=== PATIENT | male | born 1960 | race Caucasian/White ===

== ENCOUNTER 2017-01-15 19:46 | Inpatient (IN) | payer MEDICARE, MEDICAID ==
[~2017-01-15] VITALS: Ht 175.3 cm; Wt 56.2 kg
--- NOTE | 2017-01-15 20:13 | NUR ---
DR. LOCK AT BEDSIDE FOR MSE.
[2017-01-15 20:41] LABS: BASOPHILS # (AUTO) 0.4 K/uL (0.0-8.0); BASOPHILS % (AUTO) 3.2 % (0.0-2.0); EOSINOPHILS # (AUTO) 0.5 K/uL (0.0-0.7); HEMATOCRIT 36.6 % (40-50); HEMOGLOBIN 12.4 G/DL (14.0-18.0); LYMPHOCYTES # (AUTO) 2.7 K/UL (0.8-4.8); LYMPHOCYTES % (AUTO) 21.6 % (20.5-51.5); MEAN CORPUSCULAR HEMOGLOBIN 30.4 UUG (27.0-31.0); MEAN CORPUSCULAR HGB CONC 34 g/dL (32.0-37.0); MEAN CORPUSCULAR VOLUME 89.5 FL (82.0-92.0); MONOCYTES % (AUTO) 7.9 % (0.0-11.0); NEUTROPHILS # (AUTO) 7.7 K/UL (1.8-8.9); NEUTROPHILS % (AUTO) 63.3 % (38.5-71.5); PLATELET COUNT (AUTO) 431 K/UL (150-450); RED BLOOD CELL COUNT(AUTO) 4.09 MIL/UL (4.7-6.1); WHITE BLOOD COUNT (AUTO) 12.3 K/UL (4.0-11.2)
[2017-01-15 20:51] LABS: CARBON DIOXIDE 29 mmol/L (21-32); CHLORIDE 94 mmol/L (98-107); CREATININE 0.4 mg/dL (0.6-1.3); GLUCOSE 101 mg/dL (74-106); POTASSIUM 3.7 mmol/L (3.5-5.1); UREA NITROGEN, BLOOD 8 mg/dL (7-18)
[2017-01-15 20:56] LABS: *BILIRUBIN,URIN NEGATIVE (NEGATIVE); *BLOOD, URINE Trace-intact (NEGATIVE); *CLARITY,URINE CLEAR (CLEAR); *COLOR,URINE YELLOW (YELLOW); *KETONES,URINE NEGATIVE (NEGATIVE); *PROTEIN,URINE NEGATIVE (NEGATIVE); *UROBILINOGEN,URINE 0.2 E.U./dl (NORMAL); LEUKOCYTE ESTERASE ,URINE 3+ (NEGATIVE); NITRITE, URINE POSITIVE (NEGATIVE); UGLUCOSE NEGATIVE (NEGATIVE)
[2017-01-15 20:56] LABS: ETHANOL < 3 MG/DL (0-0)
[2017-01-15 21:01] LABS: BACTERIA,URINE MODERATE /HPF (NONE SEEN); SQUAMOUS EPITHELIAL CELL,UR FEW /HPF (NONE SEEN); WBC,URINE 20-50 /HPF (0-3)
[2017-01-15 21:02] LABS: ACETAMINOPHEN < 2.0 ug/mL (10-30); ALANINE AMINOTRANSFERASE 29 U/L (16-63); ALKALINE PHOSPHATASE 100 U/L (50-136); ASPARTATE AMINOTRANSFERASE 24 U/L (15-37); BILIRUBIN,DIRECT 0.1 mg/dL (0.0-0.2); BILIRUBIN,TOTAL 0.3 mg/dL (0.2-1.0); TOTAL PROTEIN, SERUM 7.4 g/dL (6.4-8.2)
[2017-01-15 21:06] LABS: THYROID STIMULATING HORMONE 1.167 mIU/mL (0.358-3.740)
[2017-01-15 21:07] LABS: *AMPHETAMINE, URINE NEGATIVE (NEGATIVE); *BARBITURATE, URINE NEGATIVE (NEGATIVE); *CANNABINOID, URINE NEGATIVE (NEGATIVE); *COCCAINE, URINE NEGATIVE (NEGATIVE); *OPIATE, URINE NEGATIVE (NEGATIVE); *PHENCYCLIDINE SCREEN,URINE NEGATIVE (NEGATIVE)
[2017-01-15] MEDS ORDERED: NITROFURANTOIN/NITROFURAN MAC 100 MG CAPSULE PO ONE (21:30)
--- NOTE | 2017-01-15 21:33 | NUR ---
Kuldip Castillo at bedside for interview.
[2017-01-15] MEDS ORDERED: NITROFURANTOIN/NITROFURAN MAC 100 MG CAPSULE ONE (21:49)
[2017-01-15] MEDS ORDERED: FLUT16SP2 NAS (22:05)
[2017-01-15] MEDS ORDERED: MAGN400O6 PO (22:05)
[2017-01-15] MEDS ORDERED: ASPI81TA31 PO (22:05)
[2017-01-15] MEDS ORDERED: CETI10CA PO (22:05)
[2017-01-15] MEDS ORDERED: ACET-2154 PO (22:05)
[2017-01-15] MEDS ORDERED: LACO200T2 PO (22:05)
[2017-01-15] MEDS ORDERED: ATOR80TA PO (22:05)
[2017-01-15] MEDS ORDERED: LEVE100S PO (22:05)
[2017-01-15] MEDS ORDERED: MAGN400T26 PO (22:05)
[2017-01-15] MEDS ORDERED: FOLI1TAB16 PO (22:05)
[2017-01-15] MEDS ORDERED: BISA10SU12 PR (22:05)
[2017-01-15] MEDS ORDERED: THIA100T13 PO (22:05)
--- NOTE | 2017-01-15 22:20 | NUR ---
Pt. admitted to [facility] , under care of Dr. AYALA Belongs List completed PLACED ON 5150 FOR DTS.
[2017-01-15] MEDS ORDERED: MAGNESIUM HYDROXIDE 30 ML LIQUID UDC PO PRN (23:15)
[2017-01-15] MEDS ORDERED: MAG HYDROX/AL HYDROX/SIMETH 30 ML LIQUID UDC PO PRN (23:15)
[2017-01-15] MEDS ORDERED: ZOLPIDEM 5 MG TABLET PO PRN (23:15)
[2017-01-15] MEDS ORDERED: ACETAMINOPHEN 325 MG TABLET PO PRN (23:15)
[2017-01-16] MEDS ORDERED: ZOLPIDEM 5 MG TABLET ONE (00:02)
[2017-01-16] MEDS ORDERED: LORAZEPAM 1 MG TABLET ONE (00:02)
[2017-01-16 00:15] VITALS: BP 128/90
[2017-01-16] MEDS: LORAZEPAM 1 MG TABLET PO PRN (00:34)
--- NOTE | 2017-01-16 01:00 | NUR ---
GPS: Admitted to unit earlier a 56 yr.old male from [facility] under the care and supervision of /. Pt.is on a 72 hour hold for DTS. Pt. stated that he wished to and that he's been depressed since of his twin brother,per hold. Pt.also has been refusing his psych.meds. and has been non compliant with his care. Skin assessment done/personal belongings completed. Contraband items removed from pt. Pt.is alert to self and place only at this time. Pt. during admission process was demanding for a cigarette repeatedly and when was told he may not,he got agitated,hostile and refused to sign papers and answer questions asked by staff. Assisted to his room and was given a sleeping pill per pts request. Safety emphasized. No further escalation of behavior noted.
[2017-01-16 07:30] VITALS: BP 151/70
[2017-01-16] MEDS: NICOTINE 21 MG/24HR PATCH TD SCH (09:15)
[2017-01-16] MEDS: CEPHALEXIN MONOHYDRATE 500 MG CAPSULE PO SCH ×3 (12:46→21:15)
[2017-01-16] MEDS: LEVETIRACETAM 500 MG/5 ML LIQUID UDC PO SCH ×2 (13:51→20:16)
[2017-01-16] MEDS: ASPIRIN 81 MG TAB.CHEW PO SCH (13:51)
[2017-01-16] MEDS: FOLIC ACID 1 MG TABLET PO SCH (13:51)
[2017-01-16] MEDS: LACOSAMIDE 50 MG TABLET PO SCH ×2 (13:51→20:14)
[2017-01-16] MEDS ORDERED: MULTIVITAMINS,THERAPEUTIC TABLET PO SCH (14:00)
--- NOTE | 2017-01-16 14:54 | NUR ---
KEFLEX 500 MG DOSE AT 1400 NOT GIVEN TOO CLOSE TO THE IST DOSE.
[2017-01-16 15:24] VITALS: BP 113/66
[2017-01-16 20:10] VITALS: BP 115/74
[2017-01-16] MEDS: QUETIAPINE FUMARATE 25 MG TABLET PO SCH (20:15)
[2017-01-16] MEDS: CETIRIZINE HCL 10 MG TABLET PO SCH (20:15)
[2017-01-16] MEDS ORDERED: Medication Not On Formulary EA (Cetirizine Hcl (Zyrtec) 10 MG) PO SCH (21:00)
[2017-01-17] MEDS: CEPHALEXIN MONOHYDRATE 500 MG CAPSULE PO SCH ×3 (05:50→21:42)
--- NOTE | 2017-01-17 06:44 | NUR ---
Pt SLEPT THROUGHOUT THE SHIFT. SHOWERED THIS MORNING. SLEPT 9.15 HOURS.
[2017-01-17 07:25] LABS: BASOPHILS # (AUTO) 0.1 K/uL (0.0-8.0); BASOPHILS % (AUTO) 1.6 % (0.0-2.0); EOSINOPHILS # (AUTO) 0.5 K/uL (0.0-0.7); EOSINOPHILS % (AUTO) 5.7 % (0.0-7.0); HEMATOCRIT 39.7 % (40-50); HEMOGLOBIN 12.9 G/DL (14.0-18.0); LYMPHOCYTES # (AUTO) 2.3 K/UL (0.8-4.8); LYMPHOCYTES % (AUTO) 26.3 % (20.5-51.5); MEAN CORPUSCULAR HEMOGLOBIN 29.1 UUG (27.0-31.0); MEAN CORPUSCULAR HGB CONC 33 g/dL (32.0-37.0); MEAN CORPUSCULAR VOLUME 89.5 FL (82.0-92.0); MONOCYTES # (AUTO) 0.9 K/UL (0.1-1.30); NEUTROPHILS % (AUTO) 56.4 % (38.5-71.5); PLATELET COUNT (AUTO) 362 K/UL (150-450); RED BLOOD CELL COUNT(AUTO) 4.44 MIL/UL (4.7-6.1); WHITE BLOOD COUNT (AUTO) 8.8 K/UL (4.0-11.2)
[2017-01-17 07:30] VITALS: BP 109/80
[2017-01-17 07:34] LABS: ALANINE AMINOTRANSFERASE 29 U/L (16-63); ALKALINE PHOSPHATASE 95 U/L (50-136); ASPARTATE AMINOTRANSFERASE 21 U/L (15-37); BILIRUBIN,TOTAL 0.3 mg/dL (0.2-1.0); CARBON DIOXIDE 28 mmol/L (21-32); CHLORIDE 97 mmol/L (98-107); CREATININE 0.5 mg/dL (0.6-1.3); GLUCOSE 87 mg/dL (74-106); MAGNESIUM 1.3 mg/dL (1.8-2.4); PHOSPHOROUS 4.1 mg/dL (2.5-4.9); POTASSIUM 3.8 mmol/L (3.5-5.1); TOTAL PROTEIN, SERUM 7.2 g/dL (6.4-8.2); UREA NITROGEN, BLOOD 5 mg/dL (7-18)
[2017-01-17] MEDS: NICOTINE 21 MG/24HR PATCH TD SCH (09:07)
[2017-01-17] MEDS: THIAMINE HCL 100 MG TABLET PO SCH (09:24)
[2017-01-17] MEDS: FOLIC ACID 1 MG TABLET PO SCH (09:24)
[2017-01-17] MEDS: ESCITALOPRAM OXALATE 10 MG TABLET PO SCH (09:24)
[2017-01-17] MEDS: LEVETIRACETAM 500 MG/5 ML LIQUID UDC PO SCH ×2 (09:31→20:00)
[2017-01-17] MEDS: MULTIVITAMINS,THERAPEUTIC TABLET PO SCH (09:32)
[2017-01-17] MEDS: LACOSAMIDE 50 MG TABLET PO SCH ×2 (09:32→20:01)
[2017-01-17] MEDS ORDERED: MAGNESIUM OXIDE 400 MG TABLET PO ONE (09:45)
[2017-01-17] MEDS: FLUTICASONE PROP NASAL SPRAY 16 GM BOTTLE NS SCH (09:57)
[2017-01-17] MEDS: ASPIRIN 81 MG TAB.CHEW PO SCH (09:57)
[2017-01-17 15:23] VITALS: BP 102/71
[2017-01-17] MEDS: CETIRIZINE HCL 10 MG TABLET PO SCH (20:01)
[2017-01-17] MEDS: MAGNESIUM OXIDE 400 MG TABLET PO SCH (20:01)
[2017-01-17] MEDS: QUETIAPINE FUMARATE 25 MG TABLET PO SCH (20:02)
[2017-01-17 20:24] VITALS: BP 116/65
[2017-01-18] MEDS: CEPHALEXIN MONOHYDRATE 500 MG CAPSULE PO SCH ×3 (06:05→21:22)
[2017-01-18 07:30] VITALS: BP 99/65
[2017-01-18] MEDS: NICOTINE 21 MG/24HR PATCH TD SCH (08:22)
[2017-01-18] MEDS: MULTIVITAMINS,THERAPEUTIC TABLET PO SCH (08:23)
[2017-01-18] MEDS: ESCITALOPRAM OXALATE 10 MG TABLET PO SCH (08:23)
[2017-01-18] MEDS: ASPIRIN 81 MG TAB.CHEW PO SCH (08:23)
[2017-01-18] MEDS: LACOSAMIDE 50 MG TABLET PO SCH ×2 (08:23→21:23)
[2017-01-18] MEDS: THIAMINE HCL 100 MG TABLET PO SCH (08:23)
[2017-01-18] MEDS: FLUTICASONE PROP NASAL SPRAY 16 GM BOTTLE NS SCH (08:24)
[2017-01-18] MEDS: LORAZEPAM 1 MG TABLET PO PRN (08:31)
[2017-01-18] MEDS: LEVETIRACETAM 500 MG/5 ML LIQUID UDC PO SCH ×2 (09:15→21:24)
[2017-01-18] MEDS: FOLIC ACID 1 MG TABLET PO SCH (12:42)
[2017-01-18] MEDS ORDERED: MAGNESIUM OXIDE 400 MG TABLET PO ONE (14:45)
--- NOTE | 2017-01-18 17:09 | NUR ---
Initial DC Plan: Pt arrived from [facility] [[address], [place] [address] ]. SW will follow up with facility to confirm if patiet can return upon discharge. SW will follow up with MD, patient, and pt's LATANYA Garcia [[phone]] to discuss most appropriate discharge plans. SW will form a safe and proper discharge.
--- NOTE | 2017-01-18 18:14 | NUR ---
Pt was compliant on taking his pills. Pt observed that pt has difficulty and delays finding words when having conversation with pt.
[2017-01-18 20:36] VITALS: BP 132/79
[2017-01-18] MEDS: CETIRIZINE HCL 10 MG TABLET PO SCH (21:22)
[2017-01-18] MEDS: MAGNESIUM OXIDE 400 MG TABLET PO SCH (21:22)
[2017-01-18] MEDS: QUETIAPINE FUMARATE 25 MG TABLET PO SCH (21:23)
--- NOTE | 2017-01-18 22:00 | NUR ---
received to care, lying in bed, pleasant upon approach, but easilly agitated. compliant with medications and staff direction. as of 2199, he appears to be asleep. no dsitress noted. will continue to monitor closely.
[2017-01-19] MEDS: CEPHALEXIN MONOHYDRATE 500 MG CAPSULE PO SCH ×3 (05:57→21:14)
--- NOTE | 2017-01-19 06:00 | NUR ---
slept 10.0 hours, total. assisted with AM care, and shower. currently lying in bed. no distress noted.
[2017-01-19 07:30] VITALS: BP 114/76
[2017-01-19] MEDS: LACOSAMIDE 50 MG TABLET PO SCH ×2 (08:53→20:43)
[2017-01-19] MEDS: THIAMINE HCL 100 MG TABLET PO SCH (08:53)
[2017-01-19] MEDS: NICOTINE 21 MG/24HR PATCH TD SCH (08:53)
[2017-01-19] MEDS: ESCITALOPRAM OXALATE 10 MG TABLET PO SCH (08:54)
[2017-01-19] MEDS: ASPIRIN 81 MG TAB.CHEW PO SCH (08:54)
[2017-01-19] MEDS: FLUTICASONE PROP NASAL SPRAY 16 GM BOTTLE NS SCH (08:54)
[2017-01-19] MEDS: MULTIVITAMINS,THERAPEUTIC TABLET PO SCH (08:54)
[2017-01-19] MEDS: LEVETIRACETAM 500 MG/5 ML LIQUID UDC PO SCH ×2 (08:57→20:45)
[2017-01-19] MEDS: FOLIC ACID 1 MG TABLET PO SCH (13:35)
[2017-01-19] MEDS: LORAZEPAM 1 MG TABLET PO PRN (15:25)
[2017-01-19 16:32] VITALS: BP 135/85
[2017-01-19] MEDS: QUETIAPINE FUMARATE 25 MG TABLET PO SCH (20:44)
[2017-01-19] MEDS: CETIRIZINE HCL 10 MG TABLET PO SCH (20:44)
[2017-01-19] MEDS: MAGNESIUM OXIDE 400 MG TABLET PO SCH (20:44)
[2017-01-19 20:49] VITALS: BP 103/63
--- NOTE | 2017-01-19 21:04 | NUR ---
Patient sleeping in bed, alert and oriented to self, blunted affect still with signs of depression with minimal engagement to conversation. Denies any suicidal ideation at this time. Maintained baed in locked position. On 14-day hold until 02/01 foe suicidal ideation. Maintained on safety suicide precaution.
[2017-01-20] MEDS: CEPHALEXIN MONOHYDRATE 500 MG CAPSULE PO SCH ×3 (05:29→21:14)
--- NOTE | 2017-01-20 06:36 | NUR ---
had a good sleep through the night 10.0 hrs. still with depressed and withdrawn behavior with no suicidal ideation. vital signs are stable. no respiratory distress noted. maintained on safety.
[2017-01-20 07:30] VITALS: BP 127/70
[2017-01-20] MEDS: ESCITALOPRAM OXALATE 10 MG TABLET PO SCH (09:03)
[2017-01-20] MEDS: LACOSAMIDE 50 MG TABLET PO SCH ×2 (09:03→20:28)
[2017-01-20] MEDS: NICOTINE 21 MG/24HR PATCH TD SCH (09:03)
[2017-01-20] MEDS: THIAMINE HCL 100 MG TABLET PO SCH (09:03)
[2017-01-20] MEDS: MULTIVITAMINS,THERAPEUTIC TABLET PO SCH (09:03)
[2017-01-20] MEDS: ASPIRIN 81 MG TAB.CHEW PO SCH (09:03)
[2017-01-20] MEDS: FOLIC ACID 1 MG TABLET PO SCH (09:04)
[2017-01-20] MEDS: FLUTICASONE PROP NASAL SPRAY 16 GM BOTTLE NS SCH (09:10)
[2017-01-20] MEDS: LEVETIRACETAM 500 MG/5 ML LIQUID UDC PO SCH ×2 (09:52→20:28)
[2017-01-20 15:36] VITALS: BP 106/69
[2017-01-20] MEDS: MAGNESIUM OXIDE 400 MG TABLET PO SCH (20:29)
[2017-01-20] MEDS: CETIRIZINE HCL 10 MG TABLET PO SCH (20:29)
[2017-01-20] MEDS: QUETIAPINE FUMARATE 25 MG TABLET PO SCH (20:29)
[2017-01-20 20:46] VITALS: BP 113/79
--- NOTE | 2017-01-20 22:00 | NUR ---
received to care, lying in bed, pleasant upon approach. compliant with medications and staff direction. as of 0, he appears to be asleep. no distress noted. will continue to monitor closely.
--- NOTE | 2017-01-21 06:00 | NUR ---
slept 7.5 hours, total. currently lying in bed. no distress noted. Addendum: 01/21/17 at 0644 by DENISSE HANCOCK LVN assisted with am care, and shower.
[2017-01-21] MEDS: CEPHALEXIN MONOHYDRATE 500 MG CAPSULE PO SCH (06:06)
[2017-01-21 07:30] VITALS: BP 103/82
[2017-01-21 07:40] LABS: BASOPHILS # (AUTO) 0.2 K/uL (0.0-8.0); BASOPHILS % (AUTO) 2.1 % (0.0-2.0); EOSINOPHILS # (AUTO) 0.5 K/uL (0.0-0.7); EOSINOPHILS % (AUTO) 6.5 % (0.0-7.0); HEMOGLOBIN 12.8 g/dL (12.5-16.3); LYMPHOCYTES # (AUTO) 1.9 K/uL (20.0-40.0); LYMPHOCYTES % (AUTO) 23.9 % (20.5-51.5); MEAN CORPUSCULAR HEMOGLOBIN 30.7 uug (23.8-33.4); MEAN CORPUSCULAR HGB CONC 35 g/dL (32.5-36.3); MEAN CORPUSCULAR VOLUME 88.5 fL (73.0-96.2); MONOCYTES # (AUTO) 0.9 K/uL (2.0-10.0); MONOCYTES % (AUTO) 11.5 % (0.0-11.0); NEUTROPHILS # (AUTO) 4.4 K/uL (1.8-8.9); PLATELET COUNT (AUTO) 290 K/uL (152-348); RED BLOOD CELL COUNT(AUTO) 4.18 MIL/uL (4.06-5.63); WHITE BLOOD COUNT (AUTO) 7.9 K/uL (3.6-10.2)
[2017-01-21 07:49] LABS: ALANINE AMINOTRANSFERASE 22 U/L (16-63); ALKALINE PHOSPHATASE 93 U/L (50-136); ASPARTATE AMINOTRANSFERASE 17 U/L (15-37); BILIRUBIN,TOTAL 0.3 mg/dL (0.2-1.0); CARBON DIOXIDE 28 mmol/L (21-32); CHLORIDE 98 mmol/L (98-107); CREATININE 0.4 mg/dL (0.6-1.3); GLUCOSE 94 mg/dL (74-106); POTASSIUM 3.5 mmol/L (3.5-5.1); TOTAL PROTEIN, SERUM 7.1 g/dL (6.4-8.2); UREA NITROGEN, BLOOD 9 mg/dL (7-18)
[2017-01-21 08:10] LABS: MAGNESIUM 1.2 mg/dL (1.8-2.4)
[2017-01-21] MEDS: LACOSAMIDE 50 MG TABLET PO SCH ×2 (08:44→20:44)
[2017-01-21] MEDS: MULTIVITAMINS,THERAPEUTIC TABLET PO SCH (08:44)
[2017-01-21] MEDS: ESCITALOPRAM OXALATE 10 MG TABLET PO SCH (08:44)
[2017-01-21] MEDS: NICOTINE 21 MG/24HR PATCH TD SCH (08:44)
[2017-01-21] MEDS: THIAMINE HCL 100 MG TABLET PO SCH (08:44)
[2017-01-21] MEDS: ASPIRIN 81 MG TAB.CHEW PO SCH (08:44)
--- NOTE | 2017-01-21 09:00 | NUR ---
0808 Charge nurse received low magnesium level 1.2 . 0820 CYLINDER BATCHER, Davis Lara notified about it with order to give magnesium 400 mg iv. Dread Vera, cooperative education director notified by charge nurse Michelle to administer IV magnesium- orderd carried out.
[2017-01-21] MEDS: FLUTICASONE PROP NASAL SPRAY 16 GM BOTTLE NS SCH (09:01)
[2017-01-21] MEDS: MAGNESIUM SULFATE/D5W 100 ML IV SCH ×4 (09:29→13:02)
[2017-01-21] MEDS: LEVETIRACETAM 500 MG/5 ML LIQUID UDC PO SCH ×2 (09:42→20:43)
[2017-01-21] MEDS: FOLIC ACID 1 MG TABLET PO SCH (13:06)
[2017-01-21 15:00] VITALS: BP_SYST 120; BP_SYST 131; BP_DIAS 66; BP_DIAS 78
[2017-01-21 20:34] VITALS: BP 118/76
[2017-01-21] MEDS: QUETIAPINE FUMARATE 25 MG TABLET PO SCH (20:43)
[2017-01-21] MEDS: CETIRIZINE HCL 10 MG TABLET PO SCH (20:44)
[2017-01-21] MEDS: MAGNESIUM OXIDE 400 MG TABLET PO SCH (20:44)
--- NOTE | 2017-01-21 21:46 | NUR ---
PATIENT RECEIVED IN BED AWAKE. PATIENT WITH FLAT AFFECT MINIMAL INTERACTION/ENGAGEMENT. PATIENT DENIES SI WILL CONTINUE TO MONITOR CHANGE OF BEHAVIOR AND REDIRECT NEEDED. PATIENT DENIES PAIN AT THIS TIME,WILL CONTINUE TO MONITOR. BED IN LOWEST POSITION, BED LOCKED, AND BED ALARM ON WHILE IN BED.
[2017-01-22 07:30] VITALS: BP 124/79
[2017-01-22] MEDS: ASPIRIN 81 MG TAB.CHEW PO SCH (09:00)
[2017-01-22] MEDS: FLUTICASONE PROP NASAL SPRAY 16 GM BOTTLE NS SCH (09:00)
[2017-01-22] MEDS: THIAMINE HCL 100 MG TABLET PO SCH (09:00)
[2017-01-22] MEDS: NICOTINE 21 MG/24HR PATCH TD SCH (09:00)
[2017-01-22] MEDS: MULTIVITAMINS,THERAPEUTIC TABLET PO SCH (09:00)
[2017-01-22] MEDS: ESCITALOPRAM OXALATE 10 MG TABLET PO SCH (09:00)
[2017-01-22] MEDS: FOLIC ACID 1 MG TABLET PO SCH (12:43)
[2017-01-22 15:27] VITALS: BP 117/81
[2017-01-22] MEDS: MAGNESIUM OXIDE 400 MG TABLET PO SCH (20:03)
[2017-01-22] MEDS: CETIRIZINE HCL 10 MG TABLET PO SCH (20:05)
[2017-01-22] MEDS: QUETIAPINE FUMARATE 25 MG TABLET PO SCH (20:05)
[2017-01-22 20:12] VITALS: BP 112/64
[2017-01-22] MEDS: LEVETIRACETAM 500 MG/5 ML LIQUID UDC PO SCH (21:35)
[2017-01-22] MEDS: LACOSAMIDE 50 MG TABLET PO SCH (21:36)
[2017-01-23 07:30] VITALS: BP 106/70
[2017-01-23] MEDS: THIAMINE HCL 100 MG TABLET PO SCH (08:33)
[2017-01-23] MEDS: MULTIVITAMINS,THERAPEUTIC TABLET PO SCH (08:33)
[2017-01-23] MEDS: NICOTINE 21 MG/24HR PATCH TD SCH (08:33)
[2017-01-23] MEDS: LACOSAMIDE 50 MG TABLET PO SCH ×2 (08:33→20:52)
[2017-01-23] MEDS: ASPIRIN 81 MG TAB.CHEW PO SCH (08:33)
[2017-01-23] MEDS: ESCITALOPRAM OXALATE 10 MG TABLET PO SCH (08:33)
[2017-01-23] MEDS: LEVETIRACETAM 500 MG/5 ML LIQUID UDC PO SCH ×2 (09:57→20:54)
[2017-01-23] MEDS: FLUTICASONE PROP NASAL SPRAY 16 GM BOTTLE NS SCH (09:57)
[2017-01-23] MEDS: FOLIC ACID 1 MG TABLET PO SCH (14:33)
[2017-01-23 15:00] VITALS: BP 113/76
[2017-01-23 20:30] VITALS: BP 110/62
[2017-01-23] MEDS: MAGNESIUM OXIDE 400 MG TABLET PO SCH (20:53)
[2017-01-23] MEDS: QUETIAPINE FUMARATE 25 MG TABLET PO SCH (20:53)
[2017-01-23] MEDS: CETIRIZINE HCL 10 MG TABLET PO SCH (20:53)
[2017-01-24 07:30] VITALS: BP 124/66
[2017-01-24] MEDS: NICOTINE 21 MG/24HR PATCH TD SCH (10:23)
[2017-01-24] MEDS: ESCITALOPRAM OXALATE 10 MG TABLET PO SCH (10:24)
[2017-01-24] MEDS: LEVETIRACETAM 500 MG/5 ML LIQUID UDC PO SCH ×2 (10:24→20:26)
[2017-01-24] MEDS: ASPIRIN 81 MG TAB.CHEW PO SCH (10:24)
[2017-01-24] MEDS: LACOSAMIDE 50 MG TABLET PO SCH ×2 (10:24→20:27)
[2017-01-24] MEDS: THIAMINE HCL 100 MG TABLET PO SCH (10:24)
[2017-01-24] MEDS: MULTIVITAMINS,THERAPEUTIC TABLET PO SCH (10:24)
[2017-01-24] MEDS: FLUTICASONE PROP NASAL SPRAY 16 GM BOTTLE NS SCH (10:54)
[2017-01-24] MEDS: FOLIC ACID 1 MG TABLET PO SCH (12:50)
[2017-01-24 17:00] VITALS: BP 113/69
--- NOTE | 2017-01-24 18:50 | NUR ---
Spoke with patients LATANYA Gómez. Dalia was following up regarding her request to the Doctor about a medication adjustment. Gave an update. Dalia also mentioned that patient prefers to go by his middle name "Anthony". Will continue to monitor
[2017-01-24] MEDS: QUETIAPINE FUMARATE 25 MG TABLET PO SCH (20:27)
[2017-01-24] MEDS: MAGNESIUM OXIDE 400 MG TABLET PO SCH (20:27)
[2017-01-24] MEDS: CETIRIZINE HCL 10 MG TABLET PO SCH (20:27)
[2017-01-24 20:47] VITALS: BP 123/82
--- NOTE | 2017-01-24 22:19 | NUR ---
PATIENT RECEIVED IN BED AWAKE. PATIENT WITH FLAT AFFECT INTERACTS WITH STAFF AND PEERS.PATIENT DENIES SI WILL CONTINUE TO MONITOR CHANGE OF BEHAVIOR AND REDIRECT NEEDED. PATIENT DENIES PAIN AT THIS TIME,WILL CONTINUE TO MONITOR. BED IN LOWEST POSITION, BED LOCKED, AND BED ALARM ON WHILE IN BED.
[2017-01-25 07:30] VITALS: BP 118/83
[2017-01-25] MEDS: FLUTICASONE PROP NASAL SPRAY 16 GM BOTTLE NS SCH (09:00)
[2017-01-25] MEDS: ESCITALOPRAM OXALATE 10 MG TABLET PO SCH (09:54)
[2017-01-25] MEDS: MULTIVITAMINS,THERAPEUTIC TABLET PO SCH (09:54)
[2017-01-25] MEDS: LEVETIRACETAM 500 MG/5 ML LIQUID UDC PO SCH ×2 (09:54→20:18)
[2017-01-25] MEDS: NICOTINE 21 MG/24HR PATCH TD SCH (09:54)
[2017-01-25] MEDS: ASPIRIN 81 MG TAB.CHEW PO SCH (09:55)
[2017-01-25] MEDS: LACOSAMIDE 50 MG TABLET PO SCH ×2 (09:55→20:19)
[2017-01-25] MEDS: THIAMINE HCL 100 MG TABLET PO SCH (09:55)
[2017-01-25] MEDS: FOLIC ACID 1 MG TABLET PO SCH (13:52)
[2017-01-25 16:37] VITALS: BP 133/80
[2017-01-25] MEDS: QUETIAPINE FUMARATE 25 MG TABLET PO SCH (20:18)
[2017-01-25] MEDS: CETIRIZINE HCL 10 MG TABLET PO SCH (20:18)
[2017-01-25] MEDS: MAGNESIUM OXIDE 400 MG TABLET PO SCH (20:18)
[2017-01-25 20:53] VITALS: BP 111/66
[2017-01-26 07:30] VITALS: BP 107/77
--- NOTE | 2017-01-26 08:24 | NUR ---
Refinery Operator Coking: SW submitted Firearms Mental Health Report to [facility].
[2017-01-26] MEDS: LACOSAMIDE 50 MG TABLET PO SCH (09:08)
[2017-01-26] MEDS: THIAMINE HCL 100 MG TABLET PO SCH (09:08)
[2017-01-26] MEDS: MULTIVITAMINS,THERAPEUTIC TABLET PO SCH (09:08)
[2017-01-26] MEDS: ESCITALOPRAM OXALATE 10 MG TABLET PO SCH (09:08)
[2017-01-26] MEDS: ASPIRIN 81 MG TAB.CHEW PO SCH (09:08)
[2017-01-26] MEDS: NICOTINE 21 MG/24HR PATCH TD SCH (09:09)
[2017-01-26] MEDS: FLUTICASONE PROP NASAL SPRAY 16 GM BOTTLE NS SCH (09:09)
[2017-01-26] MEDS: LEVETIRACETAM 500 MG/5 ML LIQUID UDC PO SCH (09:58)
--- NOTE | 2017-01-26 10:16 | NUR ---
DC Note: Patient will be discharged to [facility] [[address], [place] [address]; ] via private transportation at 4pm. ACOSTA spoke with Yolanda from [facility] who confirmed patient will be accepted back to the facility and that they will be providing transportation. Patient's DPOA Dalia Garcia [[phone]] is aware and agreeable to discharge plans. Patient will follow up with Dr. Smith (Arresting Gear Operator) and Dr. Vora (Psychiatrist). Patient was provided a brief substance abuse intervention. He was provided outpatient substance abuse referrals for [facility] [ ], [facility] [ ], and [facility] [ ].
[2017-01-26] MEDS: FOLIC ACID 1 MG TABLET PO SCH (13:47)
[2017-01-26 16:00] VITALS: BP 114/75
--- NOTE | 2017-01-26 16:30 | NUR ---
Pt discharge to [facility] with all belongings, valuables, education packet, and exit care packet. Pt skin is intact, AOx2, calm, cooperative, v/s stable, stable to transport, disoriented and confused. Pt denies suicidal ideation and has contracted for safety inside and outside of hospital. Pt travels to facility by private transportation. Pt will follow up w/ Dr. Smith (analysis director) and Dr. Vora (psychiatrist). Report was given to Brice TRINH at [facility].
== END 2017-01-26 16:30 | DRG 881 ==
LOC: ER 19:46 → GPS 22:53
PROVIDERS: ADMIT Psychiatry & Neurology Psychiatry; ATTEND Internal Medicine
DX: F32.9 Major depressive disorder, single episode, unspecified (principal); G93.40 Encephalopathy, unspecified; E83.42 Hypomagnesemia; R45.851 Suicidal ideations; F10.27 Alcohol dependence with alcohol-induced persisting dementia; E44.1 Mild protein-calorie malnutrition; E87.1 Hypo-osmolality and hyponatremia; E51.2 Wernicke's encephalopathy; N39.0 Urinary tract infection, site not specified; Z68.1 Body mass index [BMI] 19.9 or less, adult; D64.9 Anemia, unspecified; F17.210 Nicotine dependence, cigarettes, uncomplicated; G40.909 Epilepsy, unspecified, not intractable, without status epilepticus; Y90.9 Presence of alcohol in blood, level not specified; Y90.0 Blood alcohol level of less than 20 mg/100 ml; D72.829 Elevated white blood cell count, unspecified; E78.00 Pure hypercholesterolemia, unspecified; Z79.899 Other long term (current) drug therapy; M62.50 Muscle wasting and atrophy, not elsewhere classified, unspecified site
CPT/HCPCS: 36415; 70450; 71010; 80307; 83735; 84100; 84443; 85025; 93005; A4663; G0480; G0480-TC; J3475; J3535

== ENCOUNTER 2017-05-03 15:13 | Inpatient (IN) | payer MEDICARE, OTHER ==
[~2017-05-03] VITALS: Ht 167.6 cm; Wt 59.4 kg
[~2017-05-03 15:13] MED LIST: ACET-2154 PO; ASPI81TA31 PO; ATOR80TA PO; BISA10SU12 PR; CETI10CA PO; FLUT16SP2 NAS; FOLI1TAB16 PO; LACO200T2 PO; LEVE100S PO; MAGN400O6 PO; MAGN400T26 PO; THIA100T13 PO
[2017-05-03 15:51] LABS: BASOPHILS # (AUTO) 0.2 K/uL (0.0-8.0); BASOPHILS % (AUTO) 2.1 % (0.0-2.0); EOSINOPHILS # (AUTO) 0.2 K/uL (0.0-0.7); EOSINOPHILS % (AUTO) 2.2 % (0.0-7.0); HEMATOCRIT 36.3 % (36.7-47.1); HEMOGLOBIN 12.2 g/dL (12.5-16.3); LYMPHOCYTES # (AUTO) 2.2 K/uL (20.0-40.0); LYMPHOCYTES % (AUTO) 21.4 % (20.5-51.5); MEAN CORPUSCULAR HEMOGLOBIN 28.5 uug (23.8-33.4); MEAN CORPUSCULAR HGB CONC 34 g/dL (32.5-36.3); MEAN CORPUSCULAR VOLUME 84.8 fL (73.0-96.2); MONOCYTES # (AUTO) 0.8 K/uL (2.0-10.0); MONOCYTES % (AUTO) 8.1 % (0.0-11.0); NEUTROPHILS # (AUTO) 6.9 K/uL (1.8-8.9); NEUTROPHILS % (AUTO) 66.2 % (38.5-71.5); PLATELET COUNT (AUTO) 441 K/uL (152-348); RED BLOOD CELL COUNT(AUTO) 4.28 MIL/uL (4.06-5.63); WHITE BLOOD COUNT (AUTO) 10.4 K/uL (3.6-10.2)
[2017-05-03 15:58] LABS: CARBON DIOXIDE 29 mmol/L (21-32); CHLORIDE 97 mmol/L (98-107); CREATININE 0.7 mg/dL (0.6-1.3); GLUCOSE 98 mg/dL (74-106); POTASSIUM 4.2 mmol/L (3.5-5.1); UREA NITROGEN, BLOOD 9 mg/dL (7-18)
[2017-05-03 16:04] LABS: ALANINE AMINOTRANSFERASE 27 U/L (16-63); ALKALINE PHOSPHATASE 106 U/L (50-136); ASPARTATE AMINOTRANSFERASE 19 U/L (15-37); BILIRUBIN,DIRECT 0.1 mg/dL (0.0-0.2); BILIRUBIN,TOTAL 0.3 mg/dL (0.2-1.0); ETHANOL < 3 MG/DL (0-0); TOTAL PROTEIN, SERUM 7.8 g/dL (6.4-8.2)
[2017-05-03] MEDS ORDERED: MULT-1185 PO (16:21)
[2017-05-03] MEDS ORDERED: LACT10SO PO (16:21)
[2017-05-03] MEDS ORDERED: MULT-213 PO (16:21)
[2017-05-03] MEDS ORDERED: CETI-102 PO (16:21)
[2017-05-03] MEDS ORDERED: LEVE500T9 PO (16:21)
[2017-05-03 16:29] LABS: ACETAMINOPHEN < 2.0 ug/mL (10-30)
[2017-05-03 16:52] LABS: *BILIRUBIN,URIN NEGATIVE (NEGATIVE); *BLOOD, URINE NEGATIVE (NEGATIVE); *CLARITY,URINE CLEAR (CLEAR); *COLOR,URINE YELLOW (YELLOW); *KETONES,URINE NEGATIVE (NEGATIVE); *PROTEIN,URINE NEGATIVE (NEGATIVE); *UROBILINOGEN,URINE 0.2 E.U./dl (NORMAL); LEUKOCYTE ESTERASE ,URINE NEGATIVE (NEGATIVE); NITRITE, URINE NEGATIVE (NEGATIVE); UGLUCOSE NEGATIVE (NEGATIVE)
[2017-05-03 16:58] LABS: BACTERIA,URINE NONE SEEN /HPF (NONE SEEN); RBC,URINE 0-3 /HPF (0-3); SQUAMOUS EPITHELIAL CELL,UR FEW /HPF (NONE SEEN); WBC,URINE 0-3 /HPF (0-3)
[2017-05-03 17:00] LABS: *AMPHETAMINE, URINE NEGATIVE (NEGATIVE); *BARBITURATE, URINE NEGATIVE (NEGATIVE); *CANNABINOID, URINE NEGATIVE (NEGATIVE); *COCCAINE, URINE NEGATIVE (NEGATIVE); *OPIATE, URINE NEGATIVE (NEGATIVE); *PHENCYCLIDINE SCREEN,URINE NEGATIVE (NEGATIVE)
[2017-05-03] MEDS ORDERED: MAG HYDROX/AL HYDROX/SIMETH 30 ML LIQUID UDC PO PRN (19:15)
[2017-05-03] MEDS ORDERED: ZOLPIDEM 5 MG TABLET PO PRN (19:15)
[2017-05-03] MEDS ORDERED: LORAZEPAM 0.5 MG TABLET PO PRN (19:15)
[2017-05-03] MEDS ORDERED: MAGNESIUM HYDROXIDE 30 ML LIQUID UDC PO PRN (19:15)
[2017-05-03 20:00] VITALS: BP 111/72
[2017-05-04] MEDS ORDERED: CETIRIZINE HCL 10 MG TABLET PO PRN
[2017-05-04] MEDS ORDERED: BISACODYL 10 MG SUPP.RECT RC PRN
[2017-05-04] MEDS ORDERED: FOLIC ACID 1 MG TABLET PO SCH
[2017-05-04 07:30] VITALS: BP 108/83
[2017-05-04] MEDS: THIAMINE HCL 100 MG TABLET PO SCH (08:16)
[2017-05-04] MEDS: ASPIRIN 81 MG TAB.CHEW PO SCH (08:16)
[2017-05-04] MEDS: LEVETIRACETAM 500 MG TABLET PO SCH ×2 (08:16→20:13)
[2017-05-04] MEDS: FOLIC ACID 1 MG TABLET PO SCH (08:17)
[2017-05-04] MEDS: LACOSAMIDE 50 MG TABLET PO SCH ×2 (08:21→20:12)
[2017-05-04] MEDS: MULTIVIT, IRON, MIN NO. 8, FA TABLET PO SCH (08:21)
[2017-05-04] MEDS: FLUTICASONE PROP NASAL SPRAY 16 GM BOTTLE NS SCH (08:22)
[2017-05-04] MEDS ORDERED: Medication Not On Formulary EA (Multivit-Min/Iron Fum/Folic AC (Multi-Vitamin-Minerals T PO SCH (09:00)
[2017-05-04] MEDS: ESCITALOPRAM OXALATE 10 MG TABLET PO SCH (10:23)
[2017-05-04] MEDS: ACETAMINOPHEN 325 MG TABLET PO PRN (14:40)
[2017-05-04 17:09] VITALS: BP 108/65
[2017-05-04 19:54] VITALS: BP 101/68
[2017-05-04] MEDS: QUETIAPINE FUMARATE 25 MG TABLET PO SCH (20:13)
[2017-05-04] MEDS: ATORVASTATIN 40 MG TABLET PO SCH (20:13)
[2017-05-04] MEDS ORDERED: Medication Not On Formulary EA (Atorvastatin Calcium (Lipitor) 80 MG) PO SCH (21:00)
[2017-05-05 08:00] VITALS: BP 97/62
[2017-05-05] MEDS: LACOSAMIDE 50 MG TABLET PO SCH ×2 (08:43→20:00)
[2017-05-05] MEDS: THIAMINE HCL 100 MG TABLET PO SCH (08:43)
[2017-05-05] MEDS: FLUTICASONE PROP NASAL SPRAY 16 GM BOTTLE NS SCH (08:44)
[2017-05-05] MEDS: FOLIC ACID 1 MG TABLET PO SCH (08:44)
[2017-05-05] MEDS: MULTIVIT, IRON, MIN NO. 8, FA TABLET PO SCH (08:44)
[2017-05-05] MEDS: LEVETIRACETAM 500 MG TABLET PO SCH ×2 (08:44→20:01)
[2017-05-05] MEDS: ASPIRIN 81 MG TAB.CHEW PO SCH (08:44)
[2017-05-05] MEDS: ESCITALOPRAM OXALATE 10 MG TABLET PO SCH (08:44)
[2017-05-05] MEDS: NICOTINE 21 MG/24HR PATCH TD SCH (08:45)
[2017-05-05] MEDS: ACETAMINOPHEN 325 MG TABLET PO PRN ×2 (10:47→20:02)
[2017-05-05 15:32] VITALS: BP 113/70
[2017-05-05 19:00] VITALS: BP 128/73
[2017-05-05] MEDS: ATORVASTATIN 40 MG TABLET PO SCH (20:01)
[2017-05-05] MEDS: QUETIAPINE FUMARATE 25 MG TABLET PO SCH (20:01)
[2017-05-06 07:30] VITALS: BP 133/73
[2017-05-06] MEDS: LEVETIRACETAM 500 MG TABLET PO SCH ×2 (08:18→20:24)
[2017-05-06] MEDS: THIAMINE HCL 100 MG TABLET PO SCH (08:18)
[2017-05-06] MEDS: MULTIVIT, IRON, MIN NO. 8, FA TABLET PO SCH (08:18)
[2017-05-06] MEDS: LACOSAMIDE 50 MG TABLET PO SCH ×2 (08:18→20:24)
[2017-05-06] MEDS: ASPIRIN 81 MG TAB.CHEW PO SCH (08:19)
[2017-05-06] MEDS: NICOTINE 21 MG/24HR PATCH TD SCH (08:19)
[2017-05-06] MEDS: FOLIC ACID 1 MG TABLET PO SCH (08:19)
[2017-05-06] MEDS: ESCITALOPRAM OXALATE 10 MG TABLET PO SCH (08:19)
[2017-05-06] MEDS: FLUTICASONE PROP NASAL SPRAY 16 GM BOTTLE NS SCH (08:21)
[2017-05-06] MEDS: ACETAMINOPHEN 325 MG TABLET PO PRN ×2 (09:46→18:55)
[2017-05-06] MEDS ORDERED: LORAZEPAM 0.5 MG TABLET PO PRN (14:45)
[2017-05-06 15:34] VITALS: BP 110/58
[2017-05-06 19:48] VITALS: BP 120/75
[2017-05-06] MEDS: ATORVASTATIN 40 MG TABLET PO SCH (20:25)
[2017-05-06] MEDS: QUETIAPINE FUMARATE 25 MG TABLET PO SCH (20:25)
[2017-05-07 07:30] VITALS: BP 125/75
[2017-05-07] MEDS: FLUTICASONE PROP NASAL SPRAY 16 GM BOTTLE NS SCH (08:31)
[2017-05-07] MEDS: MULTIVIT, IRON, MIN NO. 8, FA TABLET PO SCH (08:32)
[2017-05-07] MEDS: LACOSAMIDE 50 MG TABLET PO SCH ×2 (08:32→20:00)
[2017-05-07] MEDS: NICOTINE 21 MG/24HR PATCH TD SCH (08:32)
[2017-05-07] MEDS: ESCITALOPRAM OXALATE 10 MG TABLET PO SCH (08:32)
[2017-05-07] MEDS: THIAMINE HCL 100 MG TABLET PO SCH (08:33)
[2017-05-07] MEDS: LEVETIRACETAM 500 MG TABLET PO SCH ×2 (08:33→20:01)
[2017-05-07] MEDS: ASPIRIN 81 MG TAB.CHEW PO SCH (08:33)
[2017-05-07] MEDS: FOLIC ACID 1 MG TABLET PO SCH (08:33)
[2017-05-07] MEDS: ACETAMINOPHEN 325 MG TABLET PO PRN ×2 (12:24→19:46)
[2017-05-07 15:16] VITALS: BP 121/81
[2017-05-07 19:48] VITALS: BP 111/74
[2017-05-07] MEDS: ATORVASTATIN 40 MG TABLET PO SCH (20:00)
[2017-05-07] MEDS: QUETIAPINE FUMARATE 25 MG TABLET PO SCH (20:01)
[2017-05-08 07:48] VITALS: BP 114/71
[2017-05-08 08:11] LABS: BASOPHILS # (AUTO) 0.1 K/uL (0.0-8.0); BASOPHILS % (AUTO) 2.2 % (0.0-2.0); EOSINOPHILS # (AUTO) 0.2 K/uL (0.0-0.7); EOSINOPHILS % (AUTO) 3.7 % (0.0-7.0); HEMATOCRIT 39.4 % (36.7-47.1); HEMOGLOBIN 13.1 g/dL (12.5-16.3); LYMPHOCYTES # (AUTO) 1.5 K/uL (20.0-40.0); MEAN CORPUSCULAR HEMOGLOBIN 28.1 uug (23.8-33.4); MEAN CORPUSCULAR HGB CONC 33 g/dL (32.5-36.3); MEAN CORPUSCULAR VOLUME 84.7 fL (73.0-96.2); MONOCYTES # (AUTO) 0.8 K/uL (2.0-10.0); NEUTROPHILS # (AUTO) 1.7 K/uL (1.8-8.9); NEUTROPHILS % (AUTO) 40.1 % (38.5-71.5); RED BLOOD CELL COUNT(AUTO) 4.66 MIL/uL (4.06-5.63)
[2017-05-08 08:14] LABS: PLATELET COUNT (AUTO) 326 K/uL (152-348); WHITE BLOOD COUNT (AUTO) 4.3 K/uL (3.6-10.2)
[2017-05-08] MEDS: LACOSAMIDE 50 MG TABLET PO SCH ×2 (08:24→20:17)
[2017-05-08] MEDS: FOLIC ACID 1 MG TABLET PO SCH (08:24)
[2017-05-08] MEDS: NICOTINE 21 MG/24HR PATCH TD SCH (08:24)
[2017-05-08] MEDS: THIAMINE HCL 100 MG TABLET PO SCH (08:24)
[2017-05-08] MEDS: ASPIRIN 81 MG TAB.CHEW PO SCH (08:24)
[2017-05-08] MEDS: ESCITALOPRAM OXALATE 10 MG TABLET PO SCH (08:25)
[2017-05-08] MEDS: MULTIVIT, IRON, MIN NO. 8, FA TABLET PO SCH (08:25)
[2017-05-08] MEDS: LEVETIRACETAM 500 MG TABLET PO SCH ×2 (08:25→20:16)
[2017-05-08] MEDS: FLUTICASONE PROP NASAL SPRAY 16 GM BOTTLE NS SCH (08:28)
[2017-05-08 08:29] LABS: ALANINE AMINOTRANSFERASE 27 U/L (16-63); ALKALINE PHOSPHATASE 95 U/L (50-136); ASPARTATE AMINOTRANSFERASE 25 U/L (15-37); BILIRUBIN,TOTAL 0.2 mg/dL (0.2-1.0); CARBON DIOXIDE 30 mmol/L (21-32); CHLORIDE 95 mmol/L (98-107); CREATININE 0.4 mg/dL (0.6-1.3); GLUCOSE 87 mg/dL (74-106); LIPASE 58 U/L (73-393); MAGNESIUM 1.3 mg/dL (1.8-2.4); PHOSPHOROUS 3.3 mg/dL (2.5-4.9); POTASSIUM 3.8 mmol/L (3.5-5.1); TOTAL PROTEIN, SERUM 7.5 g/dL (6.4-8.2); UREA NITROGEN, BLOOD 8 mg/dL (7-18)
[2017-05-08 09:13] LABS: BAND % (MANUAL) 2 % (0-10); BASOPHILS % (MANUAL) 1 % (0-2); EOSINOPHILS % (MANUAL) 4 % (0-8); LYMPHOCYTES % (MANUAL) 36 % (20-40); MONOCYTES % (MANUAL) 20 % (2-10); NEUTROPHILS % (MANUAL) 37 % (42-75)
[2017-05-08] MEDS: ACETAMINOPHEN 325 MG TABLET PO PRN (14:30)
[2017-05-08 15:02] VITALS: BP 113/72
[2017-05-08] MEDS ORDERED: MAGNESIUM OXIDE 400 MG TABLET PO ONE (15:15)
[2017-05-08 19:44] VITALS: BP 117/73
[2017-05-08] MEDS: ATORVASTATIN 40 MG TABLET PO SCH (20:16)
[2017-05-08] MEDS: QUETIAPINE FUMARATE 25 MG TABLET PO SCH (20:17)
[2017-05-09 07:30] VITALS: BP 99/60
[2017-05-09] MEDS: FLUTICASONE PROP NASAL SPRAY 16 GM BOTTLE NS SCH (08:35)
[2017-05-09] MEDS: MULTIVIT, IRON, MIN NO. 8, FA TABLET PO SCH (08:36)
[2017-05-09] MEDS: FOLIC ACID 1 MG TABLET PO SCH (08:36)
[2017-05-09] MEDS: ASPIRIN 81 MG TAB.CHEW PO SCH (08:36)
[2017-05-09] MEDS: LACOSAMIDE 50 MG TABLET PO SCH ×2 (08:36→20:16)
[2017-05-09] MEDS: NICOTINE 21 MG/24HR PATCH TD SCH (08:37)
[2017-05-09] MEDS: THIAMINE HCL 100 MG TABLET PO SCH (08:37)
[2017-05-09] MEDS: ESCITALOPRAM OXALATE 10 MG TABLET PO SCH (08:39)
[2017-05-09] MEDS: LEVETIRACETAM 500 MG TABLET PO SCH ×2 (10:09→20:15)
[2017-05-09] MEDS: ACETAMINOPHEN 325 MG TABLET PO PRN (15:24)
[2017-05-09 15:36] VITALS: BP 103/70
[2017-05-09 19:35] VITALS: BP 123/73
[2017-05-09] MEDS: ATORVASTATIN 40 MG TABLET PO SCH (20:15)
[2017-05-09] MEDS: QUETIAPINE FUMARATE 25 MG TABLET PO SCH (20:17)
[2017-05-10 07:30] VITALS: BP 109/69
[2017-05-10] MEDS: NICOTINE 21 MG/24HR PATCH TD SCH (08:48)
[2017-05-10] MEDS: FLUTICASONE PROP NASAL SPRAY 16 GM BOTTLE NS SCH (08:48)
[2017-05-10] MEDS: LACOSAMIDE 50 MG TABLET PO SCH (08:49)
[2017-05-10] MEDS: ESCITALOPRAM OXALATE 10 MG TABLET PO SCH (08:49)
[2017-05-10] MEDS: ASPIRIN 81 MG TAB.CHEW PO SCH (08:49)
[2017-05-10] MEDS: THIAMINE HCL 100 MG TABLET PO SCH (08:49)
[2017-05-10] MEDS: FOLIC ACID 1 MG TABLET PO SCH (08:49)
[2017-05-10] MEDS: LEVETIRACETAM 500 MG TABLET PO SCH (08:49)
[2017-05-10] MEDS: MULTIVIT, IRON, MIN NO. 8, FA TABLET PO SCH (08:49)
[2017-05-10] MEDS: ACETAMINOPHEN 325 MG TABLET PO PRN ×2 (12:26→18:25)
[2017-05-10 17:23] VITALS: BP 110/71
== END 2017-05-10 18:47 | DRG 885 ==
LOC: ER 15:18 → GPS 18:42
PROVIDERS: ADMIT Psychiatry & Neurology Psychiatry; ATTEND Nurse Practitioner Acute Care
DX: F39 Unspecified mood [affective] disorder (principal); F10.27 Alcohol dependence with alcohol-induced persisting dementia; E51.2 Wernicke's encephalopathy; F23 Brief psychotic disorder; Z79.82 Long term (current) use of aspirin; Z79.899 Other long term (current) drug therapy; F17.210 Nicotine dependence, cigarettes, uncomplicated; E78.5 Hyperlipidemia, unspecified; Y90.9 Presence of alcohol in blood, level not specified; D72.829 Elevated white blood cell count, unspecified
CPT/HCPCS: 36415; 71045; 80307; 83690; 83735; 84100; 85025; 93005; A4663; G0480; G0480-TC; J3535

== ENCOUNTER 2017-11-02 13:05 | Inpatient (IN) | payer MEDICARE, OTHER ==
[~2017-11-02] VITALS: Ht 165.1 cm; Wt 62.6 kg
[~2017-11-02 13:05] MED LIST changes: +CETI-102 PO; -CETI10CA PO; +LACT10SO PO; -LEVE100S PO; +LEVE500T9 PO; -MAGN400T26 PO; +MULT-1185 PO; +MULT-213 PO
[2017-11-02 16:00] LABS: BASOPHILS # (AUTO) 0.2 K/uL (0.0-8.0); BASOPHILS % (AUTO) 1.2 % (0.0-2.0); EOSINOPHILS # (AUTO) 0.5 K/uL (0.0-0.7); EOSINOPHILS % (AUTO) 3.4 % (0.0-7.0); HEMOGLOBIN 14.1 g/dL (12.5-16.3); LYMPHOCYTES # (AUTO) 2.2 K/uL (20.0-40.0); LYMPHOCYTES % (AUTO) 15.7 % (20.5-51.5); MEAN CORPUSCULAR HEMOGLOBIN 32.1 uug (23.8-33.4); MEAN CORPUSCULAR HGB CONC 34 g/dL (32.5-36.3); MEAN CORPUSCULAR VOLUME 95.8 fL (73.0-96.2); MONOCYTES # (AUTO) 1.1 K/uL (2.0-10.0); NEUTROPHILS % (AUTO) 71.7 % (38.5-71.5); PLATELET COUNT (AUTO) 298 K/uL (152-348); RED BLOOD CELL COUNT(AUTO) 4.38 MIL/uL (4.06-5.63); WHITE BLOOD COUNT (AUTO) 13.9 K/uL (3.6-10.2)
[2017-11-02 16:13] LABS: CARBON DIOXIDE 27 mmol/L (21-32); CHLORIDE 95 mmol/L (98-107); CREATININE 0.6 mg/dL (0.6-1.3); GLUCOSE 102 mg/dL (74-106); UREA NITROGEN, BLOOD 10 mg/dL (7-18)
[2017-11-02 16:17] LABS: *BILIRUBIN,URIN NEGATIVE (NEGATIVE); *BLOOD, URINE NEGATIVE (NEGATIVE); *CLARITY,URINE CLEAR (CLEAR); *COLOR,URINE YELLOW (YELLOW); *KETONES,URINE NEGATIVE (NEGATIVE); *PROTEIN,URINE TRACE (NEGATIVE); *UROBILINOGEN,URINE 0.2 E.U./dl (NORMAL); LEUKOCYTE ESTERASE ,URINE TRACE (NEGATIVE); NITRITE, URINE NEGATIVE (NEGATIVE); PH,URINE 7.5 (5.0-8.0); UGLUCOSE NEGATIVE (NEGATIVE)
[2017-11-02 16:27] LABS: ALANINE AMINOTRANSFERASE 40 U/L (16-63); ALKALINE PHOSPHATASE 90 U/L (50-136); ASPARTATE AMINOTRANSFERASE 25 U/L (15-37); BILIRUBIN,TOTAL 0.4 mg/dL (0.2-1.0); TOTAL PROTEIN, SERUM 7.7 g/dL (6.4-8.2)
[2017-11-02 16:29] LABS: ACETAMINOPHEN < 2.0 ug/mL (10-30)
[2017-11-02 16:39] LABS: MUCUS,URINE FEW /LPF (0-FEW); RBC,URINE 0-3 /HPF (0-3)
[2017-11-02 16:47] LABS: *AMPHETAMINE, URINE NEGATIVE (NEGATIVE); *BARBITURATE, URINE NEGATIVE (NEGATIVE); *CANNABINOID, URINE NEGATIVE (NEGATIVE); *COCCAINE, URINE NEGATIVE (NEGATIVE); *OPIATE, URINE NEGATIVE (NEGATIVE); *PHENCYCLIDINE SCREEN,URINE NEGATIVE (NEGATIVE)
[2017-11-02] MEDS ORDERED: CIPROFLOXACIN HCL 250 MG TABLET PO ONE (17:30)
[2017-11-02] MEDS ORDERED: CIPROFLOXACIN HCL 250 MG TABLET ONE (17:39)
[2017-11-02] MEDS ORDERED: ACET-2154 PO (17:58)
[2017-11-02] MEDS ORDERED: MULT1TAB73 PO (17:58)
[2017-11-02] MEDS ORDERED: BISA10SU12 RC (17:58)
[2017-11-02] MEDS ORDERED: CETI10TA14 PO (17:58)
[2017-11-02] MEDS ORDERED: FOLI1TAB16 PO (17:58)
[2017-11-02] MEDS ORDERED: LEVE500T9 PO (17:58)
[2017-11-02] MEDS ORDERED: ATOR80TA PO (17:58)
[2017-11-02] MEDS ORDERED: NITR0.4T48 SL (17:58)
[2017-11-02] MEDS ORDERED: ASPI-612 PO (17:58)
[2017-11-02] MEDS ORDERED: THIA100T13 PO (17:58)
[2017-11-02] MEDS ORDERED: LACT10SO PO (17:58)
[2017-11-02] MEDS ORDERED: LACO100T2 PO (17:58)
[2017-11-02] MEDS ORDERED: MAGN400T6 PO (17:58)
[2017-11-02] MEDS ORDERED: FLUT9.9S16 NS (17:58)
[2017-11-02] MEDS ORDERED: MAGNESIUM HYDROXIDE 30 ML LIQUID UDC PO PRN (18:15)
[2017-11-02] MEDS ORDERED: ACETAMINOPHEN 325 MG TABLET PO PRN ×3 (18:15→23:00)
[2017-11-02] MEDS ORDERED: LORAZEPAM 0.5 MG TABLET PO PRN (18:15)
[2017-11-02] MEDS ORDERED: TEMAZEPAM 7.5 MG CAPSULE PO PRN (18:15)
[2017-11-02] MEDS ORDERED: MAG HYDROX/AL HYDROX/SIMETH 30 ML LIQUID UDC PO PRN (18:15)
[2017-11-02 19:30] VITALS: BP 128/82
[2017-11-02] MEDS ORDERED: BISACODYL 10 MG SUPP.RECT RC PRN (23:00)
[2017-11-02] MEDS ORDERED: LACOSAMIDE PO SCH (23:00)
[2017-11-02] MEDS ORDERED: LORAZEPAM 2 MG/1 ML VIAL IV PRN (23:00)
[2017-11-02] MEDS ORDERED: LORAZEPAM 1 MG TABLET PO ONE (23:00)
[2017-11-02] MEDS ORDERED: NITROGLYCERIN 0.4 MG/TAB BOTTLE SL PRN (23:00)
[2017-11-02] MEDS: LEVETIRACETAM 500 MG TABLET PO SCH (23:17)
[2017-11-03 07:30] VITALS: BP 124/70
[2017-11-03] MEDS: NICOTINE 14 MG/24HR PATCH TD SCH (08:43)
[2017-11-03] MEDS: THIAMINE HCL 100 MG TABLET PO SCH (08:43)
[2017-11-03] MEDS: MULTIVITAMINS,THERAPEUTIC TABLET PO SCH (08:44)
[2017-11-03] MEDS: LEVETIRACETAM 500 MG TABLET PO SCH ×2 (08:44→17:43)
[2017-11-03] MEDS: ASPIRIN 325 MG TABLET PO SCH ×2 (08:45→08:49)
[2017-11-03] MEDS: MAGNESIUM OXIDE 400 MG TABLET PO SCH ×2 (08:45→17:43)
[2017-11-03] MEDS: FOLIC ACID 1 MG TABLET PO SCH (08:45)
[2017-11-03] MEDS ORDERED: LACTULOSE 20 G/30 ML LIQUID UDC PO SCH (09:00)
[2017-11-03] MEDS ORDERED: LORAZEPAM 0.5 MG TABLET PO PRN (09:30)
[2017-11-03] MEDS: LACTULOSE 20 G/30 ML LIQUID UDC PO SCH ×2 (12:13→17:43)
[2017-11-03] MEDS: ESCITALOPRAM OXALATE 10 MG TABLET PO SCH (12:14)
[2017-11-03] MEDS: LACOSAMIDE 50 MG TABLET PO SCH ×2 (12:15→20:08)
[2017-11-03 15:00] VITALS: BP 131/85
[2017-11-03] MEDS: ATORVASTATIN 40 MG TABLET PO SCH (20:08)
[2017-11-03] MEDS: CETIRIZINE HCL 10 MG TABLET PO SCH (20:08)
[2017-11-03] MEDS: QUETIAPINE FUMARATE 25 MG TABLET PO SCH (20:08)
[2017-11-03] MEDS: ACETAMINOPHEN 325 MG TABLET PO PRN (20:09)
[2017-11-03 20:28] VITALS: BP 119/72
[2017-11-04 07:35] VITALS: BP 116/80
[2017-11-04] MEDS: ASPIRIN 325 MG TABLET PO SCH (09:07)
[2017-11-04] MEDS: LACTULOSE 20 G/30 ML LIQUID UDC PO SCH ×2 (09:08→17:35)
[2017-11-04] MEDS: LACOSAMIDE 50 MG TABLET PO SCH ×2 (09:08→20:10)
[2017-11-04] MEDS: FOLIC ACID 1 MG TABLET PO SCH (09:08)
[2017-11-04] MEDS: LEVETIRACETAM 500 MG TABLET PO SCH ×2 (09:08→17:34)
[2017-11-04] MEDS: THIAMINE HCL 100 MG TABLET PO SCH (09:08)
[2017-11-04] MEDS: MULTIVITAMINS,THERAPEUTIC TABLET PO SCH (09:08)
[2017-11-04] MEDS: NICOTINE 14 MG/24HR PATCH TD SCH (09:08)
[2017-11-04] MEDS: MAGNESIUM OXIDE 400 MG TABLET PO SCH ×2 (09:09→17:34)
[2017-11-04] MEDS: ESCITALOPRAM OXALATE 10 MG TABLET PO SCH (09:09)
[2017-11-04] MEDS: FLUTICASONE PROP NASAL SPRAY 16 GM BOTTLE NS SCH (09:10)
[2017-11-04] MEDS: LEVOFLOXACIN 500 MG TABLET PO SCH (11:03)
[2017-11-04 15:48] VITALS: BP 134/84
[2017-11-04] MEDS: QUETIAPINE FUMARATE 25 MG TABLET PO SCH (20:10)
[2017-11-04] MEDS: CETIRIZINE HCL 10 MG TABLET PO SCH (20:10)
[2017-11-04] MEDS: ATORVASTATIN 40 MG TABLET PO SCH (20:11)
[2017-11-04 20:20] VITALS: BP 118/74
[2017-11-05 07:30] VITALS: BP 118/64
[2017-11-05] MEDS: LEVOFLOXACIN 500 MG TABLET PO SCH (08:40)
[2017-11-05] MEDS: LACOSAMIDE 50 MG TABLET PO SCH ×2 (08:40→20:26)
[2017-11-05] MEDS: THIAMINE HCL 100 MG TABLET PO SCH (08:40)
[2017-11-05] MEDS: MAGNESIUM OXIDE 400 MG TABLET PO SCH ×2 (08:40→17:24)
[2017-11-05] MEDS: FOLIC ACID 1 MG TABLET PO SCH (08:40)
[2017-11-05] MEDS: MULTIVITAMINS,THERAPEUTIC TABLET PO SCH (08:40)
[2017-11-05] MEDS: NICOTINE 14 MG/24HR PATCH TD SCH (08:41)
[2017-11-05] MEDS: ASPIRIN 325 MG TABLET PO SCH (08:41)
[2017-11-05] MEDS: LACTULOSE 20 G/30 ML LIQUID UDC PO SCH ×2 (08:41→17:07)
[2017-11-05] MEDS: LEVETIRACETAM 500 MG TABLET PO SCH ×2 (08:41→17:07)
[2017-11-05] MEDS: ESCITALOPRAM OXALATE 10 MG TABLET PO SCH (08:41)
[2017-11-05] MEDS: FLUTICASONE PROP NASAL SPRAY 16 GM BOTTLE NS SCH (08:42)
[2017-11-05] MEDS: ACETAMINOPHEN 325 MG TABLET PO PRN (15:44)
[2017-11-05 17:40] VITALS: BP 125/83
[2017-11-05] MEDS: CETIRIZINE HCL 10 MG TABLET PO SCH (20:26)
[2017-11-05] MEDS: QUETIAPINE FUMARATE 25 MG TABLET PO SCH (20:26)
[2017-11-05] MEDS: ATORVASTATIN 40 MG TABLET PO SCH (20:26)
[2017-11-05 21:21] VITALS: BP 120/66
[2017-11-06 07:30] VITALS: BP 117/80
[2017-11-06] MEDS: FLUTICASONE PROP NASAL SPRAY 16 GM BOTTLE NS SCH (08:36)
[2017-11-06] MEDS: MAGNESIUM OXIDE 400 MG TABLET PO SCH ×2 (08:37→17:04)
[2017-11-06] MEDS: LEVETIRACETAM 500 MG TABLET PO SCH ×2 (08:37→17:04)
[2017-11-06] MEDS: MULTIVITAMINS,THERAPEUTIC TABLET PO SCH (08:37)
[2017-11-06] MEDS: FOLIC ACID 1 MG TABLET PO SCH (08:37)
[2017-11-06] MEDS: ASPIRIN 325 MG TABLET PO SCH (08:37)
[2017-11-06] MEDS: LACOSAMIDE 50 MG TABLET PO SCH ×2 (08:37→21:31)
[2017-11-06] MEDS: ESCITALOPRAM OXALATE 10 MG TABLET PO SCH (08:38)
[2017-11-06] MEDS: THIAMINE HCL 100 MG TABLET PO SCH (08:38)
[2017-11-06] MEDS: LEVOFLOXACIN 500 MG TABLET PO SCH (08:38)
[2017-11-06] MEDS: NICOTINE 14 MG/24HR PATCH TD SCH (08:38)
[2017-11-06] MEDS: LACTULOSE 20 G/30 ML LIQUID UDC PO SCH ×2 (08:38→17:05)
[2017-11-06] MEDS: ACETAMINOPHEN 325 MG TABLET PO PRN ×2 (14:04→21:27)
[2017-11-06 15:58] VITALS: BP 102/73
[2017-11-06 20:35] VITALS: BP 121/79
[2017-11-06] MEDS: CETIRIZINE HCL 10 MG TABLET PO SCH (21:26)
[2017-11-06] MEDS: ATORVASTATIN 40 MG TABLET PO SCH (21:26)
[2017-11-06] MEDS: QUETIAPINE FUMARATE 25 MG TABLET PO SCH (21:31)
[2017-11-07 07:30] VITALS: BP 144/83
[2017-11-07] MEDS: MAGNESIUM OXIDE 400 MG TABLET PO SCH ×2 (09:32→17:23)
[2017-11-07] MEDS: LACOSAMIDE 50 MG TABLET PO SCH ×2 (09:32→20:18)
[2017-11-07] MEDS: FOLIC ACID 1 MG TABLET PO SCH (09:32)
[2017-11-07] MEDS: LEVETIRACETAM 500 MG TABLET PO SCH ×2 (09:32→17:23)
[2017-11-07] MEDS: ASPIRIN 325 MG TABLET PO SCH (09:32)
[2017-11-07] MEDS: ESCITALOPRAM OXALATE 10 MG TABLET PO SCH (09:32)
[2017-11-07] MEDS: LEVOFLOXACIN 500 MG TABLET PO SCH (09:32)
[2017-11-07] MEDS: LACTULOSE 20 G/30 ML LIQUID UDC PO SCH ×2 (09:33→17:24)
[2017-11-07] MEDS: FLUTICASONE PROP NASAL SPRAY 16 GM BOTTLE NS SCH (10:00)
[2017-11-07] MEDS: MULTIVITAMINS,THERAPEUTIC TABLET PO SCH (10:00)
[2017-11-07] MEDS: NICOTINE 14 MG/24HR PATCH TD SCH (10:00)
[2017-11-07] MEDS: THIAMINE HCL 100 MG TABLET PO SCH (10:00)
[2017-11-07 16:07] VITALS: BP_SYST 104; BP_SYST 116; BP_DIAS 47; BP_DIAS 70
[2017-11-07] MEDS: ACETAMINOPHEN 325 MG TABLET PO PRN (16:36)
[2017-11-07] MEDS: ATORVASTATIN 40 MG TABLET PO SCH (20:17)
[2017-11-07] MEDS: QUETIAPINE FUMARATE 25 MG TABLET PO SCH (20:18)
[2017-11-07] MEDS: CETIRIZINE HCL 10 MG TABLET PO SCH (20:18)
[2017-11-07 20:23] VITALS: BP 126/72
[2017-11-08 07:30] VITALS: BP 119/79
[2017-11-08] MEDS: NICOTINE 14 MG/24HR PATCH TD SCH (08:44)
[2017-11-08] MEDS: LACTULOSE 20 G/30 ML LIQUID UDC PO SCH ×2 (08:44→16:16)
[2017-11-08] MEDS: MAGNESIUM OXIDE 400 MG TABLET PO SCH ×2 (08:44→16:16)
[2017-11-08] MEDS: ASPIRIN 325 MG TABLET PO SCH (08:44)
[2017-11-08] MEDS: ESCITALOPRAM OXALATE 10 MG TABLET PO SCH (08:45)
[2017-11-08] MEDS: MULTIVITAMINS,THERAPEUTIC TABLET PO SCH (08:45)
[2017-11-08] MEDS: LEVOFLOXACIN 500 MG TABLET PO SCH (08:46)
[2017-11-08] MEDS: FOLIC ACID 1 MG TABLET PO SCH (08:46)
[2017-11-08] MEDS: LACOSAMIDE 50 MG TABLET PO SCH ×2 (08:47→20:11)
[2017-11-08] MEDS: THIAMINE HCL 100 MG TABLET PO SCH (08:47)
[2017-11-08] MEDS: LEVETIRACETAM 500 MG TABLET PO SCH ×2 (08:47→16:16)
[2017-11-08] MEDS: FLUTICASONE PROP NASAL SPRAY 16 GM BOTTLE NS SCH (08:51)
[2017-11-08 16:05] VITALS: BP 101/60
[2017-11-08 19:30] VITALS: BP 121/76
[2017-11-08] MEDS: CETIRIZINE HCL 10 MG TABLET PO SCH (20:11)
[2017-11-08] MEDS: ATORVASTATIN 40 MG TABLET PO SCH (20:11)
[2017-11-08] MEDS: QUETIAPINE FUMARATE 25 MG TABLET PO SCH (20:11)
[2017-11-09 07:30] VITALS: BP 133/78
[2017-11-09] MEDS: FLUTICASONE PROP NASAL SPRAY 16 GM BOTTLE NS SCH (08:55)
[2017-11-09] MEDS: NICOTINE 14 MG/24HR PATCH TD SCH (08:55)
[2017-11-09] MEDS: ASPIRIN 325 MG TABLET PO SCH (09:05)
[2017-11-09] MEDS: LEVETIRACETAM 500 MG TABLET PO SCH (09:06)
[2017-11-09] MEDS: LACOSAMIDE 50 MG TABLET PO SCH (09:06)
[2017-11-09] MEDS: MULTIVITAMINS,THERAPEUTIC TABLET PO SCH (09:07)
[2017-11-09] MEDS: THIAMINE HCL 100 MG TABLET PO SCH (09:07)
[2017-11-09] MEDS: MAGNESIUM OXIDE 400 MG TABLET PO SCH (09:07)
[2017-11-09] MEDS: ESCITALOPRAM OXALATE 10 MG TABLET PO SCH (09:07)
[2017-11-09] MEDS: FOLIC ACID 1 MG TABLET PO SCH (09:08)
[2017-11-09] MEDS: LEVOFLOXACIN 500 MG TABLET PO SCH (09:09)
[2017-11-09] MEDS: LACTULOSE 20 G/30 ML LIQUID UDC PO SCH (09:09)
== END 2017-11-09 12:30 | DRG 868 ==
LOC: ER 13:05 → GPS 17:33
PROVIDERS: ADMIT Psychiatry & Neurology Psychiatry; ATTEND Internal Medicine
DX: B96.1 Klebsiella pneumoniae [K. pneumoniae] as the cause of diseases classified elsewhere (principal); F10.27 Alcohol dependence with alcohol-induced persisting dementia; N39.0 Urinary tract infection, site not specified; F39 Unspecified mood [affective] disorder; K70.30 Alcoholic cirrhosis of liver without ascites; Y90.9 Presence of alcohol in blood, level not specified; J30.9 Allergic rhinitis, unspecified; G40.909 Epilepsy, unspecified, not intractable, without status epilepticus; Z79.82 Long term (current) use of aspirin; Z79.899 Other long term (current) drug therapy; E78.5 Hyperlipidemia, unspecified; I10 Essential (primary) hypertension; I25.10 Atherosclerotic heart disease of native coronary artery without angina pectoris; F41.8 Other specified anxiety disorders; Z66 Do not resuscitate
CPT/HCPCS: 36415; 71045; 73070; 80307; 85025; 87077; 87086; 93005; A4663; G0480-TC; J3535